=== PATIENT | male | born 1940 | race Caucasian/White ===

== ENCOUNTER 2020-09-22 16:30 | Emergency (ER) | payer SELFPAY ==
[~2020-09-22] VITALS: Ht 180.3 cm; Wt 85.4 kg
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
[2020-09-22 17:35] LABS: BASO % 0 % (0-3); EOS # 0.1 x10^3/uL (0.0-0.7); EOS % 1 % (0-3); HEMATOCRIT 40.9 % (39.0-53.0); HEMOGLOBIN 13.6 g/dL (13.0-17.5); LYMPH # 1.6 x10^3/uL (1.0-4.8); LYMPH % 25 % (24-48); MEAN CORPUSCULAR HEMOGLOBIN 31 pg (25-35); MEAN CORPUSCULAR HGB CONC 33 g/dL (31-37); MEAN CORPUSCULAR VOLUME 93 fL (79-100); MONO # 0.6 x10^3/uL (0.0-1.1); MONO % 10 % (0-9); NEUT # 4.2 x10^3uL (1.8-7.7); NEUT % 64 % (31-73); PLATELET COUNT 225 x10^3/uL (140-400); RED CELL DISTRIBUTION WIDTH 13.2 % (11.5-14.5); WHITE BLOOD COUNT 6.6 x10^3/uL (4.0-11.0)
[2020-09-22 17:41] LABS: CALCIUM 8.9 mg/dL (8.5-10.1); CREATININE 1.4 mg/dL (0.7-1.3); GFR 48.6; POTASSIUM 3.3 mmol/L (3.5-5.1)
[2020-09-22] MEDS ORDERED: IV NORMAL SALINE 1,000ML 1,000 ML IV ONE (17:45)
[2020-09-22 17:47] LABS: ALBUMIN 3.5 g/dL (3.4-5.0); ALBUMIN/GLOBULIN RATIO 0.9 (1.0-1.7); TOTAL BILIRUBIN 0.3 mg/dL (0.2-1.0); TOTAL PROTEIN 7.2 g/dL (6.4-8.2)
[2020-09-22] MEDS ORDERED: IOHEXOL 300 MG/ML 75 ML VIAL. IV ONE (18:30)
[2020-09-22] MEDS ORDERED: CONTRAST GIVEN. MC PRN (18:45)
--- NOTE | 2020-09-22 19:24 | RAD ---
CT scan abdomen and pelvis with contrast 11/22/2019 CLINICAL HISTORY: Right-sided abdominal pain. TECHNIQUE: After the intravenous administration of 60 cc of Omnipaque 300 only, contiguous, 5 mm axial sections were obtained through the abdomen and pelvis. One or more of the following individualized dose reduction techniques were utilized for this study: 1. Automated exposure control. 2. Adjustment of the mA and/or kV according to patient size. 3. Use of iterative reconstruction technique. FINDINGS: Comparison is made to patient's CTA of the abdomen and pelvis dated 08/03/2020. Images through the lung bases demonstrate minimal dependent subsegmental atelectasis bilaterally. There is mild cardiomegaly. Extensive coronary artery calcifications are seen. A 1 cm rounded low-attenuation lesion is seen involving the left lobe of the liver consistent with a hepatic cyst. It is unchanged. The spleen, pancreas, adrenal glands and right kidney are within normal limits. A 1.7 cm rounded low-attenuation lesion is seen involving the superior pole of the left kidney consistent most likely with a cyst. It is unchanged. No further imaging workup is recommended. Atherosclerotic calcification of the abdominal aorta is seen. The abdominal aorta tapers normally. The gallbladder is slightly contracted. No free fluid or free air is seen within the abdomen. Air and stool are seen throughout the colon. There is no evidence of bowel obstruction. The appendix is well-visualized and is within normal limits. Images through the pelvis demonstrate the urinary bladder distended with urine. Surgical clips are seen within the pelvis consistent with a radical prostatectomy. Moderate amount stool seen within the rectum. No free fluid is seen. No pelvic, inguinal or retroperitoneal lymphadenopathy is noted. The osseous structures are unchanged. IMPRESSION: No acute abnormality is seen. Electronically signed by: Jimbo Child MD (09/22/2020 7:21 PM) [id number]
[2020-09-22 20:25] VITALS: BP 146/84
[2020-09-22 20:48] LABS: BILIRUBIN,URINE NEG (NEG); CLARITY,URINE CLEAR; COLOR,URINE YELLOW; GLUCOSE,URINE NEG (NEG)
[2020-09-22 20:49] LABS: BACTERIA,URINE 0 /HPF (0-FEW); NITRITE,URINE NEG (NEG); RBC,URINE 0 /HPF (0-2); UROBILINOGEN,URINE 0.2 mg/dL (0.2 mg/dL); WBC,URINE 0 /HPF (0-4)
== END 2020-09-22 20:57 | disposition home or self-care (01) ==
LOC: ER 16:30
DX: K59.00 Constipation, unspecified (principal)
CPT/HCPCS: 36415; 74177; 80053; 81001; 83605; 83690; 85025; 96361; 96374; 99285; J3010; J7030; Q9967

== ENCOUNTER 2021-04-23 11:14 | Emergency (ER) | payer MEDICARE ==
[~2021-04-23] VITALS: Ht 180.3 cm; Wt 85.4 kg
--- NOTE | 2021-04-23 11:47 | RAD ---
AP chest. HISTORY: Pain AP view was taken of the chest. Patient's taken a poor inspiration. There is no effusion. There are n o confluent infiltrates. Heart is upper normal in size. IMPRESSION: 1. Poor inspiration. 2. No acute infiltrates. Electronically signed by: Med Hackett MD (04/23/2021 11:45 AM) [id number]
[2021-04-23] MEDS ORDERED: MORPHINE SULFATE 4 MG/ML DISP.SYRIN. IV ONE ×2 (12:00→16:00)
[2021-04-23] MEDS ORDERED: ONDANSETRON PF 4 MG/2 ML VIAL. IVP ONE (12:00)
--- NOTE | 2021-04-23 12:02 | RAD ---
XR HIP_RT 2-3VIEWS History: Reason: pain / Spl. Instructions: / History: Technique: 2 views right hip Comparison: None. Findings: Acute right femoral neck fracture with superior displacement of the distal fracture fragment. No disl ocation. Impression: 1. Acute right femoral neck fracture. Electronically signed by: Berhane Ferreira DO (04/23/2021 11:59 AM) [id number]
[2021-04-23 12:29] LABS: BASO % 1 % (0-3); EOS # 0.1 x10^3/uL (0.0-0.7); EOS % 1 % (0-3); HEMATOCRIT 40.5 % (39.0-53.0); HEMOGLOBIN 13.6 g/dL (13.0-17.5); LYMPH # 1.1 x10^3/uL (1.0-4.8); LYMPH % 19 % (24-48); MEAN CORPUSCULAR HEMOGLOBIN 30 pg (25-35); MEAN CORPUSCULAR HGB CONC 34 g/dL (31-37); MEAN CORPUSCULAR VOLUME 89 fL (79-100); MONO # 0.4 x10^3/uL (0.0-1.1); MONO % 7 % (0-9); NEUT # 4.1 x10^3uL (1.8-7.7); NEUT % 72 % (31-73); PLATELET COUNT 201 x10^3/uL (140-400); RED BLOOD COUNT 4.56 x10^6/uL (4.30-5.70); RED CELL DISTRIBUTION WIDTH 14.2 % (11.5-14.5); WHITE BLOOD COUNT 5.7 x10^3/uL (4.0-11.0)
[2021-04-23 12:34] LABS: CALCIUM 8.2 mg/dL (8.5-10.1); CREATININE 1.2 mg/dL (0.7-1.3); POTASSIUM 3.1 mmol/L (3.5-5.1)
--- NOTE | 2021-04-23 12:47 | PHYS DOC ---
Past History Past Medical History: Cancer, CVA, High Cholesterol Past Surgical History: No Surgical History Alcohol Use: Sober Adult General Chief Complaint Chief Complaint: LOWEREXTREMITY INJURY HPI HPI Patient is an 80-year-old male who presents to the emergency room complaining of right leg pain. Patient was getting up to his walker when he fell landing on his right side. Patient states that it is extremely painful to move the leg. He denies any sensation changes. He states he is able to move the foot it just hurts his upper leg. He denies hitting his head or losing consciousness. Pain is severe and sharp in nature. It is worse with movement. Review of Systems Review of Systems Complete ROS is negative unless otherwise documented in HPI Current Medications Current Medications Current Medications Medications (Trade) Dose Ordered Sig/Bob Start Time Stop Time Status Last Admin Dose Admin Morphine Sulfate (Morphine 4mg Syringe) 4 mg 1X ONCE 04/23/21 12:00 04/23/21 12:01 DC 04/23/21 12:11 4 MG Ondansetron HCl (Zofran) 4 mg 1X ONCE 04/23/21 12:00 04/23/21 12:01 DC 04/23/21 12:10 4 MG Allergies Allergies Allergies Coded Allergies Type Severity Reaction Last Updated Verified Penicillins Allergy Unknown 04/23/21 Yes aspirin Allergy Unknown 04/23/21 Yes Physical Exam Physical Exam General: Awake, alert, NAD. Well Nourished, well hydrated. Cooperative HEENT: Atraumatic, EOMI, PERRL, airway patent, moist oral mucosa Neck: Supple, trachea midline Respiratory: CTA bilaterally, normal effort, no wheezing/crackles CV: RRR, no murmur, cap refill <2 GI: Soft, nondistended, nontender, no masses MSK: Right leg deformity, 2+ DP pulse, intact sensation Skin: Warm, dry, intact Neuro: A&O x3, speech NL, sensory and motor grossly intact, no focal deficits Psych: Normal affect, normal mood, not suicidal or homicidal Current Patient Data Vital Signs Vital Signs Date Time Temp Pulse Resp B/P (MAP) Pulse Ox O2 Delivery O2 Flow Rate FiO2 04/23/21 12:17 72 20 125/62 (83) 98 Room Air 04/23/21 11:15 97.4 Lab Results Laboratory Tests Test 04/23/21 12:05 White Blood Count 5.7 x10^3/uL (4.0-11.0) Red Blood Count 4.56 x10^6/uL (4.30-5.70) Hemoglobin 13.6 g/dL (13.0-17.5) Hematocrit 40.5 % (39.0-53.0) Mean Corpuscular Volume 89 fL (79-100) Mean Corpuscular Hemoglobin 30 pg (25-35) Mean Corpuscular Hemoglobin Concent 34 g/dL (31-37) Red Cell Distribution Width 14.2 % (11.5-14.5) Platelet Count 201 x10^3/uL (140-400) Neutrophils (%) (Auto) 72 % (31-73) Lymphocytes (%) (Auto) 19 % (24-48) L Monocytes (%) (Auto) 7 % (0-9) Eosinophils (%) (Auto) 1 % (0-3) Basophils (%) (Auto) 1 % (0-3) Neutrophils # (Auto) 4.1 x10^3uL (1.8-7.7) Lymphocytes # (Auto) 1.1 x10^3/uL (1.0-4.8) Monocytes # (Auto) 0.4 x10^3/uL (0.0-1.1) Eosinophils # (Auto) 0.1 x10^3/uL (0.0-0.7) Basophils # (Auto) 0.0 x10^3/uL (0.0-0.2) Sodium Level 141 mmol/L (136-145) Potassium Level 3.1 mmol/L (3.5-5.1) L Chloride Level 101 mmol/L (98-107) Carbon Dioxide Level 28 mmol/L (21-32) Anion Gap 12 (6-14) Blood Urea Nitrogen 24 mg/dL (8-26) Creatinine 1.2 mg/dL (0.7-1.3) Estimated GFR (Cockcroft-Gault) 58.0 Glucose Level 110 mg/dL (70-99) H Calcium Level 8.2 mg/dL (8.5-10.1) L EKG EKG [] Radiology/Procedures Radiology/Procedures [] Heart Score C/O Chest Pain: N/A Risk Factors: Risk Factors: DM, Current or recent (<one month) smoker, HTN, HLP, family history of CAD, obesity. Risk Scores: Risk Factors: DM, Current or recent (<one month) smoker, HTN, HLP, family history of CAD, obesity. Course & Med Decision Making Course & Med Decision Making Pertinent Labs and Imaging studies reviewed. (See chart for details) Patient is an 80-year-old male who presents to the emergency room complaining of right leg pain after fall from standing. X-rays were done and patient has a femoral neck fracture. Tetanus will be updated. Patient will need surgery. He is requesting to go to [facility]. [facility] will be consulted. Dragon Disclaimer Dragon Disclaimer This electronic medical record was generated, in whole or in part, using a voice recognition dictation system. Departure Departure: Impression: Primary Impression: Femoral neck fracture Additional Impression: Fall Disposition: 02 SHORT TERM HOSPITAL Condition: STABLE Referrals: YAJAIRA WALTER MD (PCP) Problem Qualifiers MIRI SOLIMAN MD Apr 23, 2021 12:47
[2021-04-23] MEDS ORDERED: DIPH,PERTUSS(ACELL),TET VAC/PF 0.5 ML SYRINGE. VAX IM ONE (13:00)
--- NOTE | 2021-04-23 13:00 | PDOC ---
PROVIDER NOTE PROVIDER NOTE PROVIDER NOTE Rec'd call from [facility] regarding ortho consult " to ". Returned call and was notified that patient is requesting transfer to [facility] Ortho Consult is no longer needed. Justification of Admission: Justification of Admission: Justification of Admission Dx: N/A ANAMIKA LEAVITT MD Apr 23, 2021 13:00
[2021-04-23] MEDS ORDERED: POTASSIUM CHLORIDE 20 MEQ TABLET.ER. PO ONE (15:00)
[2021-04-23 15:43] VITALS: BP 130/64
== END 2021-04-23 16:38 | disposition short-term general hospital (02) ==
LOC: ER 11:14
DX: S72.001A Fracture of unspecified part of neck of right femur, initial encounter for closed fracture (principal); E78.00 Pure hypercholesterolemia, unspecified; Z86.73 Personal history of transient ischemic attack (TIA), and cerebral infarction without residual deficits; Z20.822 Contact with and (suspected) exposure to COVID-19; Z88.0 Allergy status to penicillin; Z88.6 Allergy status to analgesic agent; W18.39XA Other fall on same level, initial encounter; Y93.89 Activity, other specified; Y92.89 Other specified places as the place of occurrence of the external cause; Y99.8 Other external cause status
CPT/HCPCS: 36415; 71045; 73502; 80048; 85025; 87426; 96374; 96375; 96376; 99285; C9803; J2270; J2405; U0003

== ENCOUNTER → 2021-06-22 | Outpatient (CLI) | payer MEDICARE ==
--- NOTE | 2021-06-22 16:44 | RAD ---
XR RIBS MIN 3 VIEWS RT W/PA CHEST History: Right rib pain after fall. Comparison: Chest x-ray 04/23/2021 Technique: PA chest. 2 views of the right ribs. Findings: The lungs are adequately and symmectrically inflated. No airspace consolidation, pleural effusion or pneumothorax. The cardiomediastinal silhoutte and pulmonary vasculature are within normal limits. The re are minimally displaced fractures of the lateral right eighth and ninth ribs. Impression: 1. Minimally displaced fracture of the lateral right eighth and ninth ribs. No pneumothorax or airsp jason consolidation. Electronically signed by: Emery Hooper MD (06/22/2021 4:42 PM) [facility]
== END ==
LOC: RAD 16:09
PROVIDERS: ATTEND Family Medicine
DX: S22.41XA Multiple fractures of ribs, right side, initial encounter for closed fracture (principal); Z68.26 Body mass index [BMI] 26.0-26.9, adult; X58.XXXA Exposure to other specified factors, initial encounter; Y93.89 Activity, other specified; Y92.89 Other specified places as the place of occurrence of the external cause; Y99.8 Other external cause status
CPT/HCPCS: 71101

== ENCOUNTER 2021-10-31 16:18 | Emergency (ER) | payer OTHER, MEDICARE, MEDICAID ==
[~2021-10-31] VITALS: Ht 170.2 cm; Wt 85.4 kg
--- NOTE | 2021-10-31 16:33 | PHYS DOC ---
Past History Past Medical History: Cancer, CVA, High Cholesterol Past Surgical History: No Surgical History Alcohol Use: Sober General Adult HPI: HPI: Patient is a 81-year-old male coming in via EMS after a mechanical fall. Patient states that he is having pain in his right hip but did not hit his head. Is on a blood thinner for a previous stroke. Otherwise been well and denies any loss of consciousness Review of Systems: Review of Systems: All other systems within normal limits except for as noted in the HPI Current Medications: Current Meds: Current Medications Medications (Trade) Dose Ordered Sig/Bob Start Time Stop Time Status Last Admin Dose Admin Fentanyl Citrate (Fentanyl 2ml Vial) 50 mcg 1X ONCE 10/31/21 16:30 10/31/21 16:31 UNV Allergies: Allergies: Allergies Coded Allergies Type Severity Reaction Last Updated Verified Penicillins Allergy Unknown 04/23/21 Yes aspirin Allergy Unknown 04/23/21 Yes Physical Exam: PE: Constitutional: Well developed, well nourished, no acute distress, non-toxic appearance. [] HENT: Normocephalic, atraumatic, bilateral external ears normal, nose normal. [] Eyes: PERRLA, conjunctiva normal, no discharge. [] Neck: No rigidity, supple, no stridor. [] Cardiovascular: Regular rate and rhythm, brisk cap refill [] Lungs & Thorax: Non labored symmetric respirations, no tachypnea or respiratory distress [] Abdomen: Soft, nondistended. Skin: Warm, dry, no erythema, no rash. [] Back: Unremarkable Extremities: No deformities, range of motion grossly intact, no lower extremity edema. Translocation over right greater trochanter, neurovascular intact distal to injury. [] Neurologic: Alert and oriented X 3, no focal deficits noted. [] Psychologic: Affect normal, judgement normal, mood normal. [] EKG: EKG: [] Radiology/Procedures: Radiology/Procedures: [address] [address] IMAGING REPORT Signed PATIENT: ROBEL NICHOLS ACCOUNT: [id number] : 1940 LOCATION: ER AGE: 81 SEX: M EXAM STATUS: REG ER ORD. PHYSICIAN: LEVI TIAN MD REASON: fall, right hip pain PROCEDURE: HIP RIGHT 2V WITH PELVIS Right hip 2 views with one view pelvis. HISTORY: Right hip pain, fall Single view was taken of the pelvis. Patient previous pelvic surgery. Pelvis is intact without an acute fracture. There is no left hip fracture noted. AP and lateral views were taken of the right hip. There is a bipolar hip prosthesis in good position. There is no acute fracture. IMPRESSION: 1. Right hip prosthesis in good position. 2. No acute hip fracture. 3. No acute pelvic fracture. Electronically signed by: Med Hackett MD (10/31/2021 5:02 PM) [facility] DICTATED AND SIGNED BY: MED HACKETT MD DATE: 10/31/211700 CC: LEVI TIAN MD; YAJAIRA WALTER MD ~MTH0 0 [][place] [address] IMAGING REPORT Signed PATIENT: ROBEL NICHOLS ACCOUNT: [id number] : 1940 LOCATION: ER AGE: 81 SEX: M EXAM STATUS: REG ER ORD. PHYSICIAN: LEVI TIAN MD REASON: fall PROCEDURE: CT HEAD WO CONTRAST INDICATION: Reason: fall / Spl. Instructions: / History: COMPARISON: December 2010 CT report TECHNIQUE: Axial CT images obtained through the head without intravenous contrast. One or more of the following individualized dose reduction techniques were utilized for this examination: 1. Automated exposure control; 2. Adjustment of the mA and/or kV according to patient size; 3. Use of iterative reconstruction technique. FINDINGS: No intracranial hemorrhage. No significant midline shift. Ventricles and sulci are globally prominent. Scattered foci of low attenuation within the white matter. IMPRESSION: * No acute intracranial hemorrhage. * Scattered regions of low attenuation within the white matter. Non-specific in nature but a common finding and frequently secondary to small vessel ischemic disease. 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 Electronically signed by: Celestine Justice MD (10/31/2021 5:10 PM) DESKTOP- [id number] DICTATED AND SIGNED BY: CELESTINE JUSTICE MD DATE: 10/31/211699 CC: LEVI TIAN MD; YAJAIRA WALTER MD ~MTH0 0 Heart Score: C/O Chest Pain: No Risk Factors: Risk Factors: DM, Current or recent (<one month) smoker, HTN, HLP, family history of CAD, obesity. Risk Scores: Score 0 - 3: 2.5% MACE over next 6 weeks - Discharge Home Score 4 - 6: 20.3% MACE over next 6 weeks - Admit for Clinical Observation Score 7 - 10: 72.7% MACE over next 6 weeks - Early Invasive Strategies Course & Med Decision Making: Course & Med Decision Making Pertinent Labs and Imaging studies reviewed. (See chart for details) X-ray unremarkable, patient able to ambulate with walker with a steady gait. [] Dragon Disclaimer: Dragon Disclaimer: This electronic medical record was generated, in whole or in part, using a voice recognition dictation system. Departure Departure: Impression: Primary Impression: Fall Additional Impression: Contusion of right hip Disposition: HOME / SELF CARE / HOMELESS Condition: STABLE Referrals: YAJAIRA WALTER MD (PCP) Patient Instructions: Fall Prevention and Home Safety LEVI TIAN MD Oct 31, 2021 16:33
[2021-10-31 17:02] LABS: BASO % 0 % (0-3); EOS # 0.3 x10^3/uL (0.0-0.7); EOS % 6 % (0-3); HEMATOCRIT 38.3 % (39.0-53.0); HEMOGLOBIN 12.6 g/dL (13.0-17.5); LYMPH # 1.2 x10^3/uL (1.0-4.8); LYMPH % 21 % (24-48); MEAN CORPUSCULAR HEMOGLOBIN 30 pg (25-35); MEAN CORPUSCULAR HGB CONC 33 g/dL (31-37); MEAN CORPUSCULAR VOLUME 91 fL (79-100); MONO # 0.5 x10^3/uL (0.0-1.1); MONO % 9 % (0-9); NEUT # 3.6 x10^3uL (1.8-7.7); NEUT % 64 % (31-73); PLATELET COUNT 206 x10^3/uL (140-400); RED CELL DISTRIBUTION WIDTH 14.6 % (11.5-14.5); WHITE BLOOD COUNT 5.7 x10^3/uL (4.0-11.0)
--- NOTE | 2021-10-31 17:05 | RAD ---
Right hip 2 views with one view pelvis. HISTORY: Right hip pain, fall Single view was taken of the pelvis. Patient previous pelvic surgery. Pelvis is intact without an acu te fracture. There is no left hip fracture noted. AP and lateral views were taken of the right hip. There is a bipolar hip prosthesis in good position. There is no acute fracture. IMPRESSION: 1. Right hip prosthesis in good position. 2. No acute hip fracture. 3. No acute pelvic fracture. Electronically signed by: Med Hackett MD (10/31/2021 5:02 PM) [facility]
[2021-10-31 17:07] VITALS: BP 151/64
--- NOTE | 2021-10-31 17:13 | RAD ---
INDICATION: Reason: fall / Spl. Instructions: / History: COMPARISON: December 2010 CT report TECHNIQUE: Axial CT images obtained through the head without intravenous contrast. One or more of the following individualized dose reduction techniques were utilized for this examinat ion: 1. Automated exposure control; 2. Adjustment of the mA and/or kV according to patient size; 3 . Use of iterative reconstruction technique. FINDINGS: No intracranial hemorrhage. No significant midline shift. Ventricles and sulci are globally prominent. Scattered foci of low attenuation within the white matter. IMPRESSION: * No acute intracranial hemorrhage. * Scattered regions of low attenuation within the white matter. Non-specific in nature but a common finding and frequently secondary to small vessel ischemic disease. 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 Electronically signed by: Alberto Siegel MD (10/31/2021 5:10 PM) [id number]
[2021-10-31 17:16] LABS: CALCIUM 8.5 mg/dL (8.5-10.1); CREATININE 0.9 mg/dL (0.7-1.3); GFR 80.6; POTASSIUM 4.2 mmol/L (3.5-5.1)
[2021-10-31 17:23] LABS: ALBUMIN 3.3 g/dL (3.4-5.0); ALBUMIN/GLOBULIN RATIO 0.9 (1.0-1.7); TOTAL BILIRUBIN 0.3 mg/dL (0.2-1.0); TOTAL PROTEIN 6.9 g/dL (6.4-8.2)
== END 2021-10-31 17:28 | disposition home or self-care (01) ==
LOC: ER 16:18
DX: S70.01XA Contusion of right hip, initial encounter (principal); E78.00 Pure hypercholesterolemia, unspecified; Z86.73 Personal history of transient ischemic attack (TIA), and cerebral infarction without residual deficits; Z88.0 Allergy status to penicillin; Z88.6 Allergy status to analgesic agent; W18.39XA Other fall on same level, initial encounter; Y93.89 Activity, other specified; Y92.89 Other specified places as the place of occurrence of the external cause; Y99.8 Other external cause status
CPT/HCPCS: 36415; 70450; 73502; 80053; 85025; 85610; 99285